=== PATIENT | female | born 1985 | race African-American/Black ===

== ENCOUNTER 2024-05-24 10:34 | Emergency (ER) | payer OTHER ==
[~2024-05-24] VITALS: Ht 165.1 cm; Wt 91.0 kg
[2024-05-24 10:37] VITALS: BP 116/79; PULSE 98; RESP 18; TEMP 36.7; O2SAT 100
[2024-05-24 11:49] LABS: BASOPHILS % 0.7 % (0.0-2.0); EOSINOPHILS % 2.8 % (0.0-5.0); HEMATOCRIT. 45.5 % (36.0-48.0); HEMOGLOBIN. 14.6 g/dL (12.0-16.0); LYMPHOCYTES % 16.5 % (20.0-50.0); MEAN CORPUSCULAR HEMOGLOBIN 29.7 pg (28.0-32.0); MEAN CORPUSCULAR HGB CONC 32.2 g/dL (31.0-37.0); MEAN CORPUSCULAR VOLUME 92.3 fL (81.0-99.0); MONOCYTES % 8.4 % (2.0-8.0); NEUTROPHILS % 71.6 % (40.0-76.0); RED BLOOD CELL COUNT 4.93 mill/uL (4.2-5.4); RED CELL DISTRIBUTION WIDTH 13.9 % (11.6-14.6); WHITE BLOOD COUNT 7.7 x1000/uL (4.5-11.0)
[2024-05-24 11:57] LABS: CHLORIDE 102 mEq/L (98-107); POTASSIUM 4.2 mEq/L (3.5-5.1); SODIUM 134 mEq/L (136-145)
[2024-05-24 11:58] LABS: CALCIUM 9.6 mg/dL (8.7-10.4); CARBON DIOXIDE 21 mEq/L (21-32)
[2024-05-24 12:02] LABS: DIFFERENTIAL COMMENT 1
[2024-05-24 12:03] LABS: CREATININE 0.7 mg/dL (0.6-1.0); GLUCOSE 92 mg/dL (70-105); UREA NITROGEN BLOOD 15 mg/dL (9-23)
[2024-05-24 12:10] LABS: TROPONIN I HIGH SENSITIVITY 44 ng/L (3.0-34)
[2024-05-24] MEDS: ASPIRIN 81MG TABLET PO ONE (12:21)
[2024-05-24 14:51] LABS: PLATELET 140 x1000/uL (130-400)
[2024-05-24 14:54] LABS: TROPONIN I HIGH SENSITIVITY 49 ng/L (3.0-34)
== END 2024-05-24 13:24 | disposition left against medical advice (07) ==
LOC: ER 10:34
DX: R07.89 Other chest pain (principal); R79.89 Other specified abnormal findings of blood chemistry; I51.7 Cardiomegaly; F31.9 Bipolar disorder, unspecified; F20.9 Schizophrenia, unspecified; F41.9 Anxiety disorder, unspecified; F17.200 Nicotine dependence, unspecified, uncomplicated
CPT/HCPCS: 80048; 85025; 84484; 36415; 71045; 93005; 99285; Z7610